=== PATIENT | female | born 1960 | race Caucasian/White ===

== ENCOUNTER 2016-05-31 15:40 | Emergency (ER) | payer OTHER ==
[2016-05-31 16:58] VITALS: BP 137/86; PULSE 98; RESP 20; TEMP 98.2; O2SAT 94
--- NOTE | 2016-05-31 17:09 | UCPHY ---
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 There is moderate bleeding this of 2 to Band-Aids prompted her visit for further evaluation for potential suturing of the right 2nd finger tip laceration. She reports moderate pain. The bleeding stopped with direct pressure. ROS: No numbness. No difficulty moving the affected digit. No other injuries. 5 point ROS is otherwise negative. Past Medical/Surgical History: Otherwise healthy Smoking Status: Unknown if ever smoked Physical Exam: Physical Exam Vital signs are normal. General: No acute distress Cardiac: Brisk capillary refill is intact throughout. Skin: No rash or pallor. Extremities: Atraumatic normal except for right 2nd finger Right 2nd finger of: Patient has a 1 cm full-thickness laceration when to the palmar aspect of the right 2nd finger distal phalanx. Minimal active bleeding. Subcutaneous tissues evident but no deeper structures are injured and no glass foreign body is evident on direct inspection. Neuro: Alert and oriented x3 with no sensorimotor deficits. Constitutional: Initial Vital Signs Temperature (C) 36.6 C 05/31/16 15:45 Heart Rate 73 05/31/16 15:45 Respiratory Rate 16 05/31/16 15:45 Blood Pressure 140/87 H 05/31/16 15:45 O2 Sat (%) 95 05/31/16 15:45 O2 Delivery Mode Room Air Allergies/Adverse Reactions: No Known Allergies Allergy (Unverified 05/31/16 16:03) Home Medications: Medication Instructions Recorded NK [No Known Home Meds] 05/31/16 MDM/Departure - MDM Procedures: Digital block: After verbal consent, using a 50 50 mix of 0.5% Marcaine 2% plain lidocaine, 27 gauge needle, chlorhexidine scrub under sterile conditions- 3 injections were administered to the base of the affected finger, 6 mL with incomplete effect. I then injected in other 3 and 0.5 mL of 2% plain lidocaine at the base of the finger with good effect. Patient tolerated this well. There were no complications. The wound is 1 cm described in physical exam. The wound was copiously irrigated with saline. The wound was explored for foreign bodies and none were found. The wound was prepped and draped in the normal sterile fashion. The edges were reapproximated using 4 0 Ethilon-4 running sutures with good hemostasis and cosmesis. The patient tolerated the procedure well. There were no complications - Depart Disposition: Home, Routine, Self-Care Clinical Impression: Finger laceration Qualifiers: Encounter type: initial encounter Qualified Code(s): S61.219A - Laceration without foreign body of unspecified finger without damage to nail, initial encounter Condition: Good Instructions: Finger Laceration (ED) Additional Instructions: Diagnosis: Right 2nd finger laceration Plan: Keep the wound clean and dry for the next 2 days. Then removed the dressing and clean daily with warm soapy water, apply a Band-Aid and with stax splint while at work. Be sure to get some air to the wound for part of the day. Return for suture removal in 10-12 days Ibuprofen and Tylenol for pain control as needed Return sooner if he develops redness, discharge or any other concerns for infection. Stand Alone Forms: Work Limited Duty Referrals: NONE *PRIMARY CARE P,. [Primary Care Provider] - As per Instructions - PQRS PQRS Measurement: NA
== END 2016-06-11 16:15 | disposition home or self-care (01) ==
LOC: CED 15:40
PROC: 0HQFXZZ Repair Right Hand Skin, External Approach (ICD-10-PCS; principal; 2016-05-31)
DX: S61.210A Laceration without foreign body of right index finger without damage to nail, initial encounter (principal); W26.9XXA Contact with unspecified sharp object(s), initial encounter; Y92.512 Supermarket, store or market as the place of occurrence of the external cause
CPT/HCPCS: 12001-PO; 99203-PO; G0463-PO